=== PATIENT | female | born 1965 | race Two or more races ===

== ENCOUNTER 2024-09-03 12:14 | Emergency (ER) | payer OTHER ==
[~2024-09-03] VITALS: Ht 154.9 cm; Wt 59.0 kg
[2024-09-03] MEDS ORDERED: ARMOUR THYROID90 MG PO (13:36)
[2024-09-03] MEDS ORDERED: METHYLPREDNISOLONE SOD SUCC 125 MG VIAL IV ONE (15:00)
[2024-09-03] MEDS ORDERED: DIPHENHYDRAMINE HCL 50 MG/ML VIAL 1ML IV ONE (15:00)
[2024-09-03] MEDS ORDERED: DIPHENHYDRAMINE HCL 50 MG/ML VIAL 1ML ONE (15:11)
[2024-09-03] MEDS ORDERED: METHYLPREDNISOLONE SOD SUCC 125 MG VIAL ONE (15:11)
[2024-09-03 15:59] LABS: BASO % 0.7 % (0.1-1.2); EOS # 0.48 (0.04-0.54); HEMATOCRIT 44.1 % (34.1-44.9); HEMOGLOBIN 15.2 g/dL (11.2-15.7); LYMPH # 1.27 (1.18-3.74); LYMPH % 18.5 % (19.3-53.1); MEAN CORPUSCULAR HEMOGLOBIN 28.4 pg (25.6-32.2); MONO # 0.69 (0.24-0.82); NEUT # 4.36 (1.56-6.13); NEUT % 63.5 % (34.0-71.1); PLATELET COUNT 311 K/uL (163-369); RED BLOOD COUNT 5.35 M/uL (3.93-5.22); RED CELL DISTRIBUTION WIDTH 13.9 % (11.6-14.4)
[2024-09-03 16:36] LABS: COVID-19 AG NEGATIVE (NEGATIVE)
[2024-09-03 16:37] LABS: INFLUENZA A AG NEGATIVE (NEGATIVE)
[2024-09-03 16:40] LABS: ALBUMIN 3.7 gm/dL (3.4-5.0); BILIRUBIN TOTAL 0.45 mg/dL (0.3-1.2); CALCIUM 8.3 mg/dL (8.5-10.1); CREATININE SERUM 0.66 mg/dL (0.55-1.02); GFR 91.66; GLOBULINA 3.8 G/DL (2.4-3.5); POTASSIUM 3.79 mEq/L (3.5-5.1); TOTAL PROTEIN 7.5 gm/dL (6.4-8.2)
== END 2024-09-03 17:54 | disposition home or self-care (01) ==
LOC: ER 12:14
PROVIDERS: General Practice
DX: T78.3XXA Angioneurotic edema, initial encounter (principal); Z88.0 Allergy status to penicillin; Z88.2 Allergy status to sulfonamides; Z91.040 Latex allergy status; E03.8 Other specified hypothyroidism; Z20.822 Contact with and (suspected) exposure to COVID-19